=== PATIENT | male | born 1980 ===

== ENCOUNTER 2024-05-16 21:56 | Outpatient (REF) | payer OTHER, SELFPAY ==
[2024-05-16 21:30] LABS: Bacteria Rare HPF (Negative); Crystals Negative HPF (Negative); Epithelial Cells Rare HPF (Negative); Mucus Negative (Negative); RBC 0-2 HPF (0-2); WBC Negative HPF (0-5)
[2024-05-16 21:31] LABS: C & S Indicated? C&S Done As Ordered; Casts Negative LPF (Negative)
[2024-05-19 12:16] LABS: Chlamydia Result Negative (Negative); GC Result Negative (Negative)
== END 2024-05-16 21:57 | disposition home or self-care (01) ==
LOC: LBN 21:56
PROVIDERS: PCP Physician Assistant Medical; Visit Provider Physician Assistant Medical
DX: R30.0 Dysuria (principal)
CPT/HCPCS: 87491; 87591; 81015; 87086